=== PATIENT | male | born 1995 | race Caucasian/White ===

== ENCOUNTER 2022-05-18 21:13 | Emergency (ER) | payer OTHER ==
[~2022-05-18] VITALS: Ht 182.9 cm; Wt 108.3 kg
[2022-05-18] MEDS ORDERED: IBUPOTC PO (21:24)
[2022-05-18] MEDS ORDERED: LISI40TA4 PO (21:24)
[2022-05-19] MEDS ORDERED: NAPR-837 PO (03:42)
[2022-05-19 04:38] VITALS: BP 118/66
== END 2022-05-19 04:49 | disposition home or self-care (01) ==
LOC: M ED 21:13
DX: M25.562 Pain in left knee (principal); W01.198A Fall on same level from slipping, tripping and stumbling with subsequent striking against other object, initial encounter; Y99.1 Military activity; Z79.899 Other long term (current) drug therapy

== ENCOUNTER 2023-02-14 15:23 | Emergency (ER) | payer OTHER ==
[~2023-02-14] VITALS: Ht 182.9 cm; Wt 104.5 kg
[~2023-02-14 15:23] MED LIST: IBUPOTC PO; LISI40TA4 PO; NAPR-837 PO
[2023-02-14 15:24] VITALS: TEMP 98.4
[2023-02-14] MEDS ORDERED: methylPREDNISolone 125MG 2ML VIAL IV ONE (17:10)
[2023-02-14] MEDS ORDERED: KETOROLAC 30 MG/ML 1ML VIAL IV ONE (17:10)
[2023-02-14] MEDS ORDERED: METHOCARBAMOL 1,000 MG/10 ML VIAL IV ONE (17:10)
[2023-02-14] MEDS ORDERED: MORPHINE 4 MG/ML 1ML VIAL IV ONE (20:15)
[2023-02-14] MEDS ORDERED: NORCO 5/325MG TABLET (HOME DOSE PACK) PO ONE (22:15)
[2023-02-14] MEDS ORDERED: PRED20TA PO (22:17)
[2023-02-14] MEDS ORDERED: METH-1164 PO (22:17)
[2023-02-14] MEDS ORDERED: IBUP-1022 PO (22:17)
[2023-02-14] MEDS ORDERED: HYDR-4571 PO (22:17)
[2023-02-14 22:23] VITALS: BP 130/60; O2SAT 100
== END 2023-02-14 22:29 | disposition home or self-care (01) ==
LOC: M ED 15:23
DX: M51.87 Other intervertebral disc disorders, lumbosacral region (principal); I10 Essential (primary) hypertension; F10.10 Alcohol abuse, uncomplicated; Y93.B3 Activity, free weights; Z79.52 Long term (current) use of systemic steroids; Z79.899 Other long term (current) drug therapy
CPT/HCPCS: 72148; 96374; 96375; 99284; J1885; J2800; J2930